=== PATIENT | male | born 1985 | race Caucasian/White ===

== ENCOUNTER → 2020-07-11 | Outpatient (CLI) | payer OTHER ==
--- NOTE | 2020-07-11 13:05 | RAD ---
XR KNEE 3 VIEWS_RT History: Reason: KNEE PAIN, SLIPPED ON WE TILE / Spl. Instructions: / History: Technique: 3 views right knee Comparison: None. Findings: Normal alignment. No fracture. No significant knee joint effusion. Impression: 1. No acute osseous abnormality. Electronically signed by: Panchito Mcallister DO (07/11/2020 1:03 PM) [id number]
== END ==
LOC: RAD 12:46
PROVIDERS: ATTEND Nurse Practitioner Family
DX: M25.561 Pain in right knee (principal)
CPT/HCPCS: 73562